=== PATIENT | female | born 1960 | race Caucasian/White ===

== ENCOUNTER 2018-03-07 20:27 | Emergency (ER) | payer OTHER ==
[~2018-03-07] VITALS: Ht 152.4 cm; Wt 64.0 kg
[2018-03-07 20:39] VITALS: Ht 152.4 cm; Wt 64.0 kg
[2018-03-08 01:16] VITALS: BP 139/67
== END 2018-03-08 01:16 | disposition home or self-care (01) ==
LOC: ED 20:27
DX: M25.552 Pain in left hip (principal)
CPT/HCPCS: J1885; Q0092; Q0163